=== PATIENT | male | born 1975 | race Caucasian/White ===

== ENCOUNTER → 2016-12-10 | Day surgery (SDC) | payer OTHER ==
[~2016-12-10] VITALS: Ht 167.6 cm; Wt 85.4 kg
[~2016-12-10] MED LIST: NEURONTIN600 MG PO; NORCO 10-325 T1 EACH PO; NORCO 5-325 TA1 EACH PO; ZANAFLEX4 MG PO
--- NOTE | ~2016-12-10 | OR ---
PATIENT'S NAME: RK BEAN [facility] AGE: 41 Y [address] ROOM: [place] [id number] LOCATION: [facility] [place] ADMIT DATE: 12/10/2016 OR/Procedure Report DISCHARGE DATE: FAMILY PHYSICIAN: Luke An ATTENDING PHYSICIAN: Elijah Puga SURGEON: Elijah Puga MD STUDY MANAGER: DATE OF PROCEDURE: 12/10/2016 PREOPERATIVE DIAGNOSES: 1. Bilateral nephrolithiasis. 2. Symptomatic left ureteral calculus-left. POSTOPERATIVE DIAGNOSES: 1. Bilateral nephrolithiasis. 2. Symptomatic left ureteral calculus-left. PROCEDURE: 1. Cystoscopy with left ureteroscopy and laser lithotripsy. 2. Left ureteral stent placement. 3. Left ESWL. ANESTHESIA: General. INDICATION: This is a 41-year-old gentleman with extensive stone history. He has a metabolically active stone formation. He is followed with Nephrology in the past. He has had calcium phosphate as well as carbonate apatite stones. He began having left-sided pain symptoms last weekend. With his experience, he knew what it was. He tried to get it passed spontaneously. He could not. He presented yesterday. CT scan was obtained. He has bilateral upper tract stones, which were nonobstructing. He has mild atrophy of the right kidney, which is stable. He has a number of fragments in the left middle third. The largest is 8 mm. With his ongoing symptoms and based on the size of his ureteral stones as well as having multiple stones, he presents for intervention. Our initial plan will be to approach the ureteral stones with the ureteroscope and laser. We will plan on stenting him and if he is doing well, we will proceed with an initial lithotripsy on the left. If that all goes well, the plan will be to bring him back and treat the right side electively and take out his stent. DESCRIPTION OF PROCEDURE: Having obtained his informed consent, the patient was taken to the operating room. He was prepped and draped sterilely and in lithotomy position. General anesthesia was administered. A 21-Togolese cystoscope was assembled and guided into the urethra. The course of the urethra was unremarkable. Bladder demonstrates a number of small stone PATIENT'S NAME: RK BEAN [facility] AGE: 41 Y [address] ROOM: [place], [place] [address] LOCATION: [facility] [place] ADMIT DATE: 12/10/2016 OR/Procedure Report DISCHARGE DATE: FAMILY PHYSICIAN: Luke An ATTENDING PHYSICIAN: Elijah Puga fragments floating in the trigone. I suspect he passes some of the small pieces through frequently. Bladder examination was confirmed with a 70-degree lens. Under fluoroscopy, I can see the upper tract stones. I cannot appreciate the ureteral stones. I passed a guidewire. We avoided contrast with the potential for lithotripsy. The stones are over the SI joint at this point. I manipulated the wire beyond. It is a straight shot. We should be able to approach them ureteroscopically in this naive ureter. A balloon dilator was passed. The orifice and intramural tunnel are dilated. I then passed the semi-rigid ureteroscope. Indeed, the stack of stones is identified. A 400 micron fiber is chosen. We started at 600 mJ and 6 Hz. Consistent with his past stone analyses, these were soft stones. They break up nicely. I did end up turning the power up to 800 mJ. We obliterated all fragments. We washed most of the them out and some of them washed cephalad. I can now move the ureteroscope into the proximal third. We cleared his ureter. My safety wire was back loaded into the cystoscope. Over that, I passed a 4.8 multilink stent. We have a nice level of placement cystoscopically and fluoroscopically. The patient is now transferred to the lithotripsy suite. The left-sided stones are targeted individually as starting at the top and working down. Again, he has soft stones. Maximum kV was 18. A total of 2000 shocks were administered and I can appreciate no further significant fragments. The patient tolerated all this well. Blood loss was negligible. No specimens were sent. The patient returned to the outpatient recovery area awake and in stable condition. The followup plan will be as outlined above. MD YAO CROSS/ivana /[id number] CC: LYUBOV Howard d: 12/10/16 2101 t: 12/29/16 1259, OPERATIVE SUMMARY
[2016-12-10 10:53] LABS: BASOPHIL % 0.3 %; EOSINOPHIL # 0.4 K/uL (0.0-0.5); EOSINOPHIL % 3.7 %; HEMATOCRIT 41.5 % (37.0-53.0); HEMOGLOBIN 14.4 g/dL (12.0-17.0); IMMATURE GRANULOCYTE % 0.3 %; LYMPHOCYTE # 3.7 K/uL (0.8-4.0); MCH 31.6 pg (27.0-34.0); MCHC 34.7 gm/dL (32.0-36.5); MCV 91.2 fl (83.0-98.0); MONOCYTE # 0.7 K/uL (0.0-1.0); MONOCYTE % 6.9 %; NEUTROPHIL # (ANC) 4.9 K/uL (1.4-9.0); NEUTROPHIL % 50.8 %; NRBC % 0 /100WBC (0-0.00); PLATELET COUNT 288 K/uL (150-450); RBC 4.55 M/uL (4.00-6.00); RDW-CV 13.3 % (11.9-14.6); WBC 9.7 K/uL (4.0-11.0)
[2016-12-10 11:10] LABS: ALBUMIN 3.9 gm/dL (3.5-5.0); ANION GAP 10.1 (10.0-19.0); CALCIUM 9.2 mg/dL (8.5-10.5); CREATININE 1.3 mg/dL (0.6-1.3); PHOSPHORUS 3.2 mg/dL (2.5-4.9); POTASSIUM 3.1 mMol/L (3.7-5.1)
== END | disposition disaster alternative care site (69) ==
LOC: GSDC 09:59 → GPOC 10:00 → GSDC 10:00 → EDSTATUS 10:00
PROVIDERS: Urology
PROC: 0TF78ZZ Fragmentation in Left Ureter, Via Natural or Artificial Opening Endoscopic (ICD-10-PCS; principal; 2016-12-10)
PROC: 0T778DZ Dilation of Left Ureter with Intraluminal Device, Via Natural or Artificial Opening Endoscopic (ICD-10-PCS; 2016-12-10)
PROC: 0TF4XZZ Fragmentation in Left Kidney Pelvis, External Approach (ICD-10-PCS; 2016-12-10)
DX: N20.2 Calculus of kidney with calculus of ureter (principal); Z88.5 Allergy status to narcotic agent; Z91.013 Allergy to seafood; Z98.890 Other specified postprocedural states
CPT/HCPCS: C1725; C1769; C2617; J1100; J1956; J2001; J2250; J2405; J3010; J7030

== ENCOUNTER → 2016-12-25 | Outpatient (CLI) | payer OTHER | END | disposition disaster alternative care site (69) | LOC: GRAD 09:39 | DX: N20.0 Calculus of kidney (principal); Z96.0 Presence of urogenital implants ==

== ENCOUNTER → 2016-12-30 | Day surgery (SDC) | payer OTHER ==
--- NOTE | ~2016-12-30 | OR ---
PATIENT'S NAME: RK BEAN [facility] AGE: 41 Y [address] ROOM: [place] [address] [place] [facility] [place] ADMIT DATE: 12/30/2016 OR/Procedure Report DISCHARGE DATE: FAMILY PHYSICIAN: Luke An ATTENDING PHYSICIAN: Chaz Yi SURGEON: Chaz Yi MD DESIGN DIRECTOR: DATE OF PROCEDURE: 12/30/2016 PREOPERATIVE DIAGNOSIS: Bilateral nephrolithiasis status post left-sided intervention and now with right-sided flank pain. POSTOPERATIVE DIAGNOSES: 1. Bilateral nephrolithiasis status post left-sided intervention and now with right-sided flank pain. 2. A 4 mm right ureteral calculus. PROCEDURES PERFORMED: 1. Cystoscopy and retrograde. 2. Right ureteroscopy with stone basket extraction. 3. Right ureteral stent placement. ANESTHESIA: General. INDICATIONS: This is a 41-year-old young man with extensive stone disease. He has calcium phosphate stones as well as carbonate apatite stones. He underwent intervention approximately 3 weeks ago on the left side. The left side has had more stones. The right kidney is mildly atrophic. He has had a smaller stone burden there. He had extensive left ureterolithiasis as well as upper tract stones. He had undergone ureteroscopy with laser lithotripsy, stent placement and ESWL on the left. We had considered intervention on the right. However, because of the extensive intervention on the left and because he had a smaller stone burden on the right and his mildly atrophic kidney, we opted to observe that. Unfortunately, last week, he became acutely symptomatic on the right side. Unfortunately, he has dropped one of those small fragments down. Based on his history and considering his multiple previous scans, he simply presented for intervention. We reviewed the indications, risks, and benefits. At that point, he tells me he is also having some less intense discomfort on the left side. He is worried about some of those fragments not mobilizing. We will check that side while we are there. DESCRIPTION OF PROCEDURE: Having obtained his informed consent, the patient was taken to the operating room. He was prepped and draped sterilely in PATIENT'S NAME: RK BEAN [facility] AGE: 41 Y [address] ROOM: [place] [address] [place] [facility] [place] ADMIT DATE: 12/30/2016 OR/Procedure Report DISCHARGE DATE: FAMILY PHYSICIAN: Luke An ATTENDING PHYSICIAN: Chaz Yi lithotomy position. General anesthesia was administered. A 21-Grenadian cystoscope was assembled and guided into the urethra. The course of the urethra was unremarkable. The bladder itself was remarkable for multiple small eveline pieces of gravel at the base of his bladder consistent with his prior laser lithotripsy and ESWL. Under fluoroscopy, I could not see any significant fragments on either side. Contrast was instilled on the left. I do not see any filling defects. The catheter passes easily all the way to the renal pelvis. I then watched him drain cystoscopically and fluoroscopically. There was no evidence of obstruction on the left. To localize a stone on the right, we obtained a retrograde there. The filling defect appears to be just below the SI joint. I passed a guidewire up the right side. It bumps against the density there. I manipulated up to the renal pelvis. A balloon dilator was passed. The orifice and intramural tunnel were dilated. The semi-rigid ureteroscope was then advanced. Indeed, our offending stone is at the level of the vessels. We should be able to extract it without breaking it up. I passed a Nitinol basket beyond it. The stone was engaged and extracted without tension. Because he has had multiple recent stone analyses, I gave the stone to the patient. With the instrumentation and dilation, I opted to stent him. My safety wire was back loaded into the cystoscope. Over that, we passed a 4.8 Multi-Link stent with the Dangler string in place. We have a nice level of placement cystoscopically and fluoroscopically. The bladder was drained and the case was concluded. The patient tolerated the procedure well. Blood loss was minimal. No specimens sent. The patient returned to the outpatient recovery awake and in stable condition. CHAZ YI MD [facility]/nol /[id number] CC: LYUBOV Howard d: 12/30/16 2156 t: 01/14/17 1013, OPERATIVE SUMMARY
== END ==
LOC: GSDC 12:00
PROC: 0T768DZ Dilation of Right Ureter with Intraluminal Device, Via Natural or Artificial Opening Endoscopic (ICD-10-PCS; principal; 2016-12-30)
PROC: BT14ZZZ Fluoroscopy of Kidneys, Ureters and Bladder (ICD-10-PCS; 2016-12-30)
DX: N20.2 Calculus of kidney with calculus of ureter (principal); Z98.890 Other specified postprocedural states; Z79.899 Other long term (current) drug therapy; Z88.5 Allergy status to narcotic agent; Z91.013 Allergy to seafood
CPT/HCPCS: C1725; C1769; C2617; J1956; J2001; J7120